=== PATIENT | female | born 2000 | race Caucasian/White ===

== ENCOUNTER 2022-07-14 13:43 | Outpatient (CLI) | payer BC | END 2022-07-14 13:44 | disposition home or self-care (01) | LOC: CSHULT 13:43 | PROVIDERS: ATTEND Internal Medicine Gastroenterology | DX: R11.2 Nausea with vomiting, unspecified (principal); R10.13 Epigastric pain; K21.9 Gastro-esophageal reflux disease without esophagitis; R19.7 Diarrhea, unspecified | CPT/HCPCS: 76700 ==

== ENCOUNTER 2024-06-14 08:55 | Outpatient (CLI) | payer BC | END 2024-06-14 08:56 | disposition home or self-care (01) | LOC: CSHULT 08:55 | PROVIDERS: ATTEND Obstetrics & Gynecology | DX: N64.4 Mastodynia (principal) ==